=== PATIENT | female | born 1980 | race Caucasian/White ===

== ENCOUNTER 2021-01-10 03:53 | Inpatient (IN) | payer MEDICAID ==
[2021-01-10] MEDS ORDERED: Nalbuphine 10 MG/1 ML Vial IVPUSH PRN (07:34)
[2021-01-10] MEDS ORDERED: Sodium Chloride 0.9% 10 ML Syringe FLUSH PRN (07:34)
[2021-01-10] MEDS ORDERED: Ondansetron 4 MG/2 ML SDV IVPUSH PRN (07:34)
--- NOTE | 2021-01-10 07:39 | PCM.LDHP ---
L&D History of Present Illness - General Date of Service: 01/10/21 Admit Problem/Dx: Patient Status Order with Admit Dx/Problem 01/10/21 07:34 Patient Status [ADT] Routine Admission Diagnosis/Problem Admission Diagnosis/Problem Advanced maternal age Source of Information: Patient History Limitations: Reports: No Limitations - History of Present Illness Introduction:: Patient is a 40 y/o at 39 1/7 wks who presents for IOL for AMA. Doing well. 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: , 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 : 11 Para: 9 LMP (Approximate): - Past Surgical History HEENT Surgical History: Reports: Other (See Below) (tooth extraction) Social & Family History - Tobacco Use Tobacco Use Status *Q: Never Tobacco User - Alcohol Use Alcohol Use History: No - Recreational Drug Use Recreational Drug Use: No H&P Review of Systems - Review of Systems: Review Of Systems: See Below General: Reports: No Symptoms Pulmonary: Reports: No Symptoms Cardiovascular: Reports: No Symptoms Gastrointestinal: Reports: No Symptoms Genitourinary: Reports: No Symptoms Musculoskeletal: Reports: No Symptoms Psychiatric: Reports: No Symptoms Neurological: Reports: No Symptoms L&D Exam - Exam Exam: See Below - OB Specific Contraction Intensity: Irritability Movement: Active Heart Tones: Present Heart Tones per Min: 140 Heart Rate (FHR) Variability: Moderate (6-25 bmp) Presentation: Vertex - Owusu Score Owusu Score Cervix Position: Midposition Ow[place]u Score Consistency: Medium Ow[place]u Score Effacement: 31-50% Owusu Score Dilation: 1-2 cm Owusu Score 's Station: -2 Owusu Score Total: 5 - Exam General: Alert, Oriented, Cooperative Lungs: Clear to Auscultation, Normal Respiratory Effort Cardiovascular: Regular Rate, Regular Rhythm GI/Abdominal Exam: Soft, Non-Tender Genitourinary: Normal external exam Extremities: Normal Inspection Skin: Warm, Dry, Intact - Patient Data Result Diagrams: 01/10/21 08:01 - Problem List (1) 39 weeks gestation of SNOMED Code(s): 84114230 ICD Code: Z3A.39 - 39 WEEKS GESTATION OF Status: Acute Current Visit: Yes (2) Advanced maternal age (AMA), 40 years or greater SNOMED Code(s): 217565176 ICD Code: [id number] - Status: Acute Current Visit: Yes Problem List Initiated/Reviewed/Updated: Yes Orders Last 24hrs: Active Orders 24 hr Category Date Time Status Patient Status [ADT] Routine ADT 01/10/21 07:34 Ordered Communication Order [RC] ASDIRECTED Care 01/10/21 07:34 Ordered Communication Order [RC] ASDIRECTED Care 01/10/21 07:34 Ordered Communication Order [RC] ASDIRECTED Care 01/10/21 07:34 Ordered Heart Tones [RC] ASDIRECTED Care 01/10/21 07:35 Ordered Monitoring [RC] INTERMITTENT Care 01/10/21 07:34 Ordered Non Stress Test [RC] PER UNIT ROUTINE Care 01/10/21 07:34 Ordered Notify Provider [RC] ASDIRECTED Care 01/10/21 07:34 Ordered Notify Provider [RC] PRN Care 01/10/21 07:34 Ordered Peripheral IV Care [RC] . DIRECTED Care 01/10/21 07:35 Ordered Up ad [place] [RC] ASDIRECTED Care 01/10/21 07:35 Ordered Vaginal Exam [RC] ASDIRECTED Care 01/10/21 07:34 Ordered Vital Signs [RC] ASDIRECTED Care 01/10/21 07:34 Ordered Regular Diet [DIET] Diet 01/10/21 Breakfast Ordered CBC W/O DIFF,HEMOGRAM [HEME] Routine Lab 01/10/21 07:34 Ordered CORONAVIRUS COVID-19 [place] [MOLEC] Stat Lab 01/10/21 07:37 Ordered HEP C VIRUS AB [REF] Routine Lab 01/10/21 07:34 Ordered RAPID PLASMA REAGIN,RPR [CHEM] Routine Lab 01/10/21 07:34 Ordered TYPE AND SCREEN [BBK] Routine Lab 01/10/21 07:34 Ordered Lactated Ringers [Ringers, Lactated] 1,000 ml Med 01/10/21 07:45 Ordered IV ASDIRECTED Nalbuphine [Nubain] Med 01/10/21 07:34 Ordered 10 mg IVPUSH Q2H PRN Ondansetron [Zofran] Med 01/10/21 07:34 Ordered 4 mg IVPUSH Q4H PRN Oxytocin/Lactated Ringers [Pitocin in LR 10 Units/1,000 Med 01/10/21 07:45 Ordered ML] 10 unit in 1,000 ml IV .CONTINUOUS Oxytocin/Lactated Ringers [Pitocin in LR 10 Units/1,000 Med 01/10/21 07:45 Ordered ML] 10 unit in 1,000 ml IV TITRATE Sodium Chloride 0.9% [Saline Flush] Med 01/10/21 07:34 Ordered 10 ml FLUSH ASDIRECTED PRN Electronic Heart Tones Ext w TOCO [WOMSER] Oth 01/10/21 07:34 Ordered Routine Electronic Heart Tones Internal [WOMSER] Per Unit Oth 01/10/21 07:34 Ordered Routine Peripheral IV Insertion Adult [OM.PC] Routine Oth 01/10/21 07:34 Ordered Resuscitation Status Routine Resus Stat 01/10/21 07:34 Ordered Medication Orders Oxytocin/Lactated Ringer's (Pitocin In Lr 10 Units/1,000 Ml) 10 unit in 1,000 mls @ 12 mls/hr IV TITRATE JOSE J; Protocol Oxytocin/Lactated Ringer's (Pitocin In Lr 10 Units/1,000 Ml) 10 unit in 1,000 mls @ 500 mls/hr IV .CONTINUOUS JOSE J Nalbuphine HCl (Nalbuphine 10 Mg/1 Ml Vial) 10 mg IVPUSH Q2H PRN PRN Reason: Pain Ondansetron HCl (Ondansetron 4 Mg/2 Ml Sdv) 4 mg IVPUSH Q4H PRN PRN Reason: Nausea/Vomiting Sodium Chloride (Sodium Chloride 0.9% 10 Ml Syringe) 10 ml FLUSH ASDIRECTED PRN PRN Reason: Keep Vein Open Assessment/Plan Comment:: * Labs to be done * GBS negative * Pitocin/AROM for IOL * Pain management per patient preference * Anticipate
[2021-01-10] MEDS ORDERED: Oxytocin/Lactated Ringers 10 UNIT/1,000 ML BAG IV SCH ×2 (07:45)
[2021-01-10] MEDS: Lactated Ringers 1,000 ML IV SCH ×4 (08:47→19:31)
[2021-01-10] MEDS ORDERED: ePHEDrine 50 MG/ML SDV IVPUSH PRN (09:07)
[2021-01-10] MEDS ORDERED: fentaNYL 100 MCG/2 ML SDV EPIDUR PRN (09:07)
[2021-01-10] MEDS ORDERED: diphenhydrAMINE 50 MG/ML SDV IVPUSH PRN (09:07)
--- NOTE | 2021-01-10 12:21 | PCM.PNLD ---
Labor Progress Note - VS & Meds Vital Signs: Last Vital Signs Temp 37.2 C 01/10/21 07:56 Pulse 102 H 01/10/21 07:56 Resp 16 01/10/21 07:56 BP 126/80 01/10/21 08:04 Pulse Ox 99 01/10/21 07:56 Active Medications: Current Medications Diphenhydramine HCl (Diphenhydramine 50 Mg/Ml Sdv) 25 mg IVPUSH Q6H PRN PRN Reason: pruritis Ephedrine Sulfate (Ephedrine 50 Mg/Ml Sdv) 5 mg IVPUSH ASDIRECTED PRN PRN Reason: Hypotension Fentanyl (Fentanyl 100 Mcg/2 Ml Sdv) 100 mcg EPIDUR Q3H PRN PRN Reason: Pain Fentanyl/Bupivacaine HCl (Bupivacaine/Fentanyl/Ns 100 Ml Bag) 100 ml EPIDUR ASDIRECTED PRN PRN Reason: Pain Oxytocin/Lactated Ringer's (Pitocin In Lr 10 Units/1,000 Ml) 10 unit in 1,000 mls @ 12 mls/hr IV TITRATE JOSE J; Protocol Last Titration: 01/10/21 11:50 Dose: 10 munits/min, 60 mls/hr Documented by: Oxytocin/Lactated Ringer's (Pitocin In Lr 10 Units/1,000 Ml) 10 unit in 1,000 mls @ 500 mls/hr IV .CONTINUOUS JOSE J Lactated Ringer's (Ringers, Lactated) 1,000 mls @ 40 mls/hr IV ASDIRECTED JOSE J Last Admin: 01/10/21 08:47 Dose: 40 mls/hr Documented by: Nalbuphine HCl (Nalbuphine 10 Mg/1 Ml Vial) 10 mg IVPUSH Q2H PRN PRN Reason: Pain Ondansetron HCl (Ondansetron 4 Mg/2 Ml Sdv) 4 mg IVPUSH Q4H PRN PRN Reason: Nausea/Vomiting Sodium Chloride (Sodium Chloride 0.9% 10 Ml Syringe) 10 ml FLUSH ASDIRECTED PRN PRN Reason: Keep Vein Open - Uterine Contractions Uterine Monitoring Mode: External [place] Contraction Intensity: Mild - Monitoring Monitor Mode: External Ultrasound Heart Rate (FHR) Baseline: 145 Heart Rate (FHR) Variability: Moderate (6-25 bmp) Accelerations: Present, 15x15 Decelerations: None Strip Review: Category I - Vaginal Exam Dilation (cm): 1.5 Effacement (Percent): 50 Station: -3 Cervical Position: Midposition - Labor Progress (Free Text) Labor Progress: Doing well. Pitocin at 10. Feeling slight contractions. AROM performed with release of clear fluid. Continue present management
[2021-01-10] MEDS: Bupivacaine/fentaNYL/NS 100 ML Bag EPIDUR PRN (17:26)
--- NOTE | 2021-01-10 18:27 | PCM.PREANE ---
Preanesthetic Assessment - Anesthesia/Transfusion/Family Hx Anesthesia History: Prior Anesthesia Without Reaction Family History of Anesthesia Reaction: No Transfusion History: No Prior Transfusion(s) Intubation History: Unknown - Review of Systems General: No Symptoms Pulmonary: No Symptoms Cardiovascular: No Symptoms Gastrointestinal: No Symptoms Neurological: No Symptoms - Physical Assessment Vital Signs: Last Vital Signs Temp 98.9 F 01/10/21 07:56 Pulse 102 H 01/10/21 07:56 Resp 16 01/10/21 07:56 BP 126/80 01/10/21 08:04 Pulse Ox 99 01/10/21 07:56 Height: 1.52 m Weight: 81.057 kg ASA Class: 2 Mental Status: Alert & Oriented x3 Dentition: Reports: Normal Dentition Thyro-Mental Finger Breadths: 3 Mouth Opening Finger Breadths: 3 ROM/Head Extension: Full Lungs: Clear to Auscultation, Normal Respiratory Effort Cardiovascular: Regular Rate, Regular Rhythm - Lab Values: Laboratory Last Values WBC 6.19 K/mm3 (3.98-10.04) 01/10/21 08:01 RBC 4.18 M/mm3 (3.98-5.22) 01/10/21 08:01 Hgb 13.0 gm/dl (11.2-15.7) 01/10/21 08:01 Hct 39.1 % (34.1-44.9) 01/10/21 08:01 MCV 93.5 fl (79.4-94.8) 01/10/21 08:01 MCH 31.1 pg (25.6-32.2) 01/10/21 08:01 MCHC 33.2 g/dl (32.2-35.5) 01/10/21 08:01 RDW Std Deviation 44.7 fL (36.4-46.3) 01/10/21 08:01 Plt Count 178 K/mm3 (182-369) L 01/10/21 08:01 MPV 10.8 fl (9.4-12.3) 01/10/21 08:01 SARS-CoV-2 RNA (CHUYITA) Negative (NEGATIVE) 01/10/21 08:00 Blood Type A POSITIVE 01/10/21 08:01 Gel Antibody Screen Negative 01/10/21 08:01 - Allergies Allergies/Adverse Reactions: Allergies Allergy/AdvReac Type Severity Reaction Status Date / Time peanut Allergy Swelling Verified 01/10/21 08:41 - Blood Blood Available: No Product(s) Available: None - Anesthesia Plan Pre-Op Medication Ordered: None - Acknowledgements Anesthesia Type Planned: Epidural Pt an Appropriate Candidate for the Planned Anesthesia: Yes Alternatives and Risks of Anesthesia Discussed w Pt/Guardian: Yes Pt/Guardian Understands and Agrees with Anesthesia Plan: Yes PreAnesthesia Questionnaire Cardiovascular History: Reports: Other (See Below) Other Cardiovascular History: Pt experiencing tachycardia and palpitations during with unknown cause Respiratory History: Reports: Asthma 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: , 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 - Infectious Disease History Infectious Disease History: Reports: Other (See Below) Other Infectious Disease History: Covid 05/08/21 - Past Surgical History HEENT Surgical History: Reports: Other (See Below) (tooth extraction) - SUBSTANCE USE Tobacco Use Status *Q: Never Tobacco User Second Hand Smoke Exposure: No Days Per Week of Alcohol Use: 0 Recreational Drug Use History: No - HOME MEDS Home Medications: Home Meds Albuterol Sulfate [Proair Digihaler] 90 mcg IH ASDIRECTED PRN 01/10/21 [History] Ferrous Sulfate 325 mg PO DAILY 01/10/21 [History] Metoprolol Tartrate [Lopressor] 12.5 mg PO ASDIRECTED PRN 01/10/21 [History] Vit 10/Iron Fum/Folic [Vitafol-OB Caplet] 1 each PO DAILY 01/10/21 [History] - CURRENT (IN HOUSE) MEDS Current Meds: Current Medications Diphenhydramine HCl (Diphenhydramine 50 Mg/Ml Sdv) 25 mg IVPUSH Q6H PRN PRN Reason: pruritis Ephedrine Sulfate (Ephedrine 50 Mg/Ml Sdv) 5 mg IVPUSH ASDIRECTED PRN PRN Reason: Hypotension Fentanyl (Fentanyl 100 Mcg/2 Ml Sdv) 100 mcg EPIDUR Q3H PRN PRN Reason: Pain Last Admin: 01/10/21 17:25 Dose: 100 mcg Documented by: Fentanyl/Bupivacaine HCl (Bupivacaine/Fentanyl/Ns 100 Ml Bag) 100 ml EPIDUR ASDIRECTED PRN PRN Reason: Pain Last Admin: 01/10/21 17:26 Dose: 100 ml Documented by: Oxytocin/Lactated Ringer's (Pitocin In Lr 10 Units/1,000 Ml) 10 unit in 1,000 mls @ 12 mls/hr IV TITRATE JOSE J; Protocol Last Titration: 01/10/21 15:50 Dose: 12 munits/min, 72 mls/hr Documented by: Oxytocin/Lactated Ringer's (Pitocin In Lr 10 Units/1,000 Ml) 10 unit in 1,000 mls @ 500 mls/hr IV .CONTINUOUS JOSE J Lactated Ringer's (Ringers, Lactated) 1,000 mls @ 40 mls/hr IV ASDIRECTED JOSE J Last Admin: 01/10/21 17:44 Dose: 40 mls/hr Documented by: Nalbuphine HCl (Nalbuphine 10 Mg/1 Ml Vial) 10 mg IVPUSH Q2H PRN PRN Reason: Pain Ondansetron HCl (Ondansetron 4 Mg/2 Ml Sdv) 4 mg IVPUSH Q4H PRN PRN Reason: Nausea/Vomiting Sodium Chloride (Sodium Chloride 0.9% 10 Ml Syringe) 10 ml FLUSH ASDIRECTED PRN PRN Reason: Keep Vein Open
[2021-01-11] MEDS ORDERED: Sodium Chloride 0.9% 1,000 ML ONE (00:26)
--- NOTE | 2021-01-11 00:58 | PCM.SN.2 ---
- Free Text/Narrative Note: 1250 Patient pitocin at 4. Having some variables and early decelerations. IUPC placed in case amnioinfusion required, but did move patient to hands/knees which did lead to resolution. Will leave in position for about 30 minutes or so and then rotate back. SVE at time of IUPC placement is Sarina Barakat MD
--- NOTE | 2021-01-11 01:52 | PCM.SN.2 ---
- Free Text/Narrative Note: 0150 Patient with resolution of variable decelerations in hands/knees, but fatigued and then rotated back. Had return of variable decelerations, but now more like like 7 cm dilated. Will start amnioinfusion/allow patient to rest. May need to turn back hands/knees once patient recovered. Sarina Barakat MD
[2021-01-11] MEDS ORDERED: Sodium Chloride 0.9% 1,000 ML IRR ONE (01:54)
[2021-01-11] MEDS: Bupivacaine/fentaNYL/NS 100 ML Bag EPIDUR PRN (01:58)
--- NOTE | 2021-01-11 04:05 | PCM.DEL ---
L & D Note - General Info Date of Service: 01/11/21 - Delivery Note Labor: Induced by ARM, Induced by Oxytocin Delivery Outcome: Livebirth Infant Delivery Method: Spontaneous Vaginal Delivery-Single Infant Delivery Mode: Spontaneous Presentation: Left Occiput Anterior (TESHA) Nuchal Cord: None Anesthesia Type: Epidural Amniotic Fluid Description: Clear Episiotomy Type: None Laceration: 1st Degree Suture type: Vicryl Suture size: 2-0 Placenta: Intact, Spontaneous Cord: 3 Vessels Estimated Blood Loss: 200 Resuscitation Needed: Yes : Bulb Syringe, Stimulated, Warmed, [place] Used, Warmer Used Delivery Comments (Free Text/Narrative):: Patient found to be complete and began pushing. With maternal pushing effort head delivered from TESHA presentation. No nuchal cord present. With gentle downward traction the shoulders and body delivered. placed on maternal abdomen. Cord clamped and cut. Cord blood obtained. Placenta allowed time to separate and expelled intact. Inspection of the perineum following delivery with small 1st degree repaired with an interrupted suture of 2-0 Vicryl - General Info Date of Service: 01/11/21 - Patient Data Vitals - Most Recent: Last Vital Signs Temp 37.2 C 01/10/21 07:56 Pulse 102 H 01/10/21 07:56 Resp 16 01/10/21 07:56 BP 126/80 01/10/21 08:04 Pulse Ox 99 01/10/21 07:56 Weight - Most Recent: 81.057 kg I&O - Last 24 Hours: Intake & Output 01/10/21 01/10/21 01/11/21 14:59 22:59 06:59 Output Total Balance @ - Exam Urinary Catheter Total Time: 0Days 0Hours - Problem List & Annotations (1) 39 weeks gestation of SNOMED Code(s): 11352288 Code(s): Z3A.39 - 39 WEEKS GESTATION OF Status: Acute Current Visit: Yes (2) Advanced maternal age (AMA), 40 years or greater SNOMED Code(s): 514356863 Code(s): QZG0949 - Status: Acute Current Visit: Yes (3) Vaginal delivery SNOMED Code(s): 467569167 Code(s): O80 - ENCOUNTER FOR FULL-TERM UNCOMPLICATED DELIVERY Status: Acute Current Visit: Yes - Problem List Review Problem List Initiated/Reviewed/Updated: Yes - My Orders Last 24 Hours: My Active Orders 01/10/21 Breakfast Regular Diet [DIET] 01/10/21 07:34 Patient Status [ADT] Routine Communication Order [RC] ASDIRECTED Communication Order [RC] ASDIRECTED Communication Order [RC] ASDIRECTED Monitoring [RC] INTERMITTENT Non Stress Test [RC] PER UNIT ROUTINE Notify Provider [RC] ASDIRECTED Notify Provider [RC] PRN Vaginal Exam [RC] ASDIRECTED Vital Signs [RC] ASDIRECTED Nalbuphine [Nubain] 10 mg IVPUSH Q2H PRN Ondansetron [Zofran] 4 mg IVPUSH Q4H PRN Sodium Chloride 0.9% [Saline Flush] 10 ml FLUSH ASDIRECTED PRN Electronic Heart Tones Ext w TOCO [WOMSER] Routine Electronic Heart Tones Internal [WOMSER] Per Unit Routine Peripheral IV Insertion Adult [OM.PC] Routine Resuscitation Status Routine 01/10/21 07:35 Heart Tones [RC] ASDIRECTED Peripheral IV Care [RC] . DIRECTED Up ad [place] [RC] ASDIRECTED 01/10/21 07:45 Lactated Ringers [Ringers, Lactated] 1,000 ml IV ASDIRECTED Oxytocin/Lactated Ringers [Pitocin in LR 10 Units/1,000 ML] 10 unit in 1,000 ml IV .CONTINUOUS Oxytocin/Lactated Ringers [Pitocin in LR 10 Units/1,000 ML] 10 unit in 1,000 ml IV TITRATE 01/10/21 08:01 HEP C VIRUS AB [REF] Routine 01/11/21 01:53 Communication Order [RC] ROUTINE 01/11/21 01:54 Sodium Chloride 0.9% 1,000 ml IRR ONETIME - Assessment Assessment:: PPD#0 - Plan Plan:: * Routine cares * Breast feeding * Discharge home in 1-2 days
[2021-01-11] MEDS ORDERED: Witch Hazel Medicated Pads 40/Jar TOP PRN (04:32)
[2021-01-11] MEDS ORDERED: Acetaminophen 325 MG Tab PO PRN (04:32)
[2021-01-11] MEDS ORDERED: Benzocaine/Menthol 20%-0.5% Spray 56 GM Canister TOP PRN (04:32)
[2021-01-11] MEDS: Lactated Ringers 1,000 ML IV SCH (04:42)
[2021-01-11] MEDS ORDERED: Bupivacaine 0.25% 10 ML SDV ONE (05:00)
[2021-01-11] MEDS: Docusate Sodium 100 MG Cap PO PRN (06:55)
[2021-01-11] MEDS: Ibuprofen 600 MG Tab PO PRN ×2 (09:55→20:41)
--- NOTE | 2021-01-11 12:41 | PCM48HPAN ---
Post Anesthesia Note - EVALUATION WITHIN 48HRS OF ANESTHETIC Vital Signs in Normal Range: Yes Patient Participated in Evaluation: Yes Respiratory Function Stable: Yes Airway Patent: Yes Cardiovascular Function Stable: Yes Hydration Status Stable: Yes Pain Control Satisfactory: Yes Nausea and Vomiting Control Satisfactory: Yes Mental Status Recovered: Yes Vital Signs: Last Vital Signs Temp 36.7 C 01/11/21 08:36 Pulse 87 01/11/21 08:36 Resp 14 01/11/21 08:36 BP 117/72 01/11/21 08:36 Pulse Ox 95 01/11/21 08:36 - COMMENTS/OBSERVATIONS Free Text/Narrative:: Patient states she still has left leg numbness, but states that the left leg is becoming more and more less numb. Patient instructed to continue to monitor and in the event leg is still numb after a few days please inform anesthesia.
--- NOTE | 2021-01-12 01:00 | PCM.DCSUM1 ---
Discharge Summary - Discharge Data Discharge Date: 01/12/21 Discharge Disposition: Home, Self-Care 01 Condition: Good - Referral to Home Health Primary Care Physician: Jing Mireles MD - Discharge Diagnosis/Problem(s) (1) 39 weeks gestation of SNOMED Code(s): 90072541 ICD Code: Z3A.39 - 39 WEEKS GESTATION OF Status: Acute Current Visit: Yes (2) Advanced maternal age (AMA), 40 years or greater SNOMED Code(s): 719882860 ICD Code: URN9622 - Status: Acute Current Visit: Yes (3) Vaginal delivery SNOMED Code(s): 662809484 ICD Code: O80 - ENCOUNTER FOR FULL-TERM UNCOMPLICATED DELIVERY Status: Acute Current Visit: Yes - Patient Summary/Data Complications: None Consults: None Recommended Follow-up Testing/Procedures: Follow up in 3 weeks for check - can be telehealth Hospital Course: 40 y/o at 39 1/7 wks who presented for IOL for AMA. Done with pitocin and AROM. Did have significant variable decelerations treated with amnioinfusion. Did achieve complete dilation and underwent an uncomplicated . See delivery note. did well and was discharged home on PPD#1 - Patient Instructions Diet: Regular Diet as Tolerated Activity: As Tolerated Activity, Other: Pelvic rest for 6 weeks Driving: May Drive Today Showering/Bathing: May Shower Showering/Bathing, Other: May Bathe Notify Provider of: Fever, Increased Pain, Swelling and Redness, Drainage, Nausea and/or Vomiting - Discharge Plan *PRESCRIPTION DRUG MONITORING PROGRAM REVIEWED*: No *COPY OF PRESCRIPTION DRUG MONITORING REPORT IN PATIENT THA: No Home Medications: Home Meds Albuterol Sulfate [Proair Digihaler] 90 mcg IH ASDIRECTED PRN 01/10/21 [History] Vit 10/Iron Fum/Folic [Vitafol-OB Caplet] 1 each PO DAILY 01/10/21 [History] Docusate Sodium [Colace] 100 mg PO BID PRN cap 01/12/21 [Rx] Ibuprofen [Motrin] 600 mg PO Q6H PRN tablet 01/12/21 [Rx] Referrals: Sarina Barakat MD [Family Provider] - - Discharge Summary/Plan Comment DC Time >30 min.: No - Patient Data Vitals - Most Recent: Last Vital Signs Temp 36.7 C 01/11/21 21:15 Pulse 87 01/11/21 21:15 Resp 15 01/11/21 21:15 BP 121/70 01/11/21 21:15 Pulse Ox 95 01/11/21 21:15 Weight - Most Recent: 81.057 kg I&O - Last 24 hours: Intake & Output 01/11/21 01/11/21 01/12/21 14:59 22:59 06:59 Intake Total 60 Balance 60 Med Orders - Current: Current Medications Acetaminophen (Acetaminophen 325 Mg Tab) 650 mg PO Q4H PRN PRN Reason: mild pain or fever Benzocaine/Menthol (Benzocaine/Menthol 20%-0.5% [place] 56 Gm Canister) 0 gm TOP ASDIRECTED PRN PRN Reason: Perineal Comfort Measure Last Admin: 01/11/21 06:57 Dose: 1 canister Documented by: Docusate Sodium (Docusate Sodium 100 Mg Cap) 100 mg PO BID PRN PRN Reason: Constipation Last Admin: 01/11/21 06:55 Dose: 100 mg Documented by: Ibuprofen (Ibuprofen 600 Mg Tab) 600 mg PO Q6H PRN PRN Reason: Mild pain or fever Last Admin: 01/11/21 20:41 Dose: 600 mg Documented by: Leny Mauricio (Leny Mauricio Medicated Pads 40/Jar) 1 pad TOP ASDIRECTED PRN PRN Reason: Perineal Comfort Measure Last Admin: 01/11/21 06:56 Dose: 1 tub Documented by: Discontinued Medications Bupivacaine HCl (Bupivacaine 0.25% 10 Ml Sdv) 10 ml .ROUTE .STK-MED ONE Stop: 01/11/21 05:01 Diphenhydramine HCl (Diphenhydramine 50 Mg/Ml Sdv) 25 mg IVPUSH Q6H PRN PRN Reason: pruritis Ephedrine Sulfate (Ephedrine 50 Mg/Ml Sdv) 5 mg IVPUSH ASDIRECTED PRN PRN Reason: Hypotension Fentanyl (Fentanyl 100 Mcg/2 Ml Sdv) 100 mcg EPIDUR Q3H PRN PRN Reason: Pain Last Admin: 01/10/21 17:25 Dose: 100 mcg Documented by: Fentanyl/Bupivacaine HCl (Bupivacaine/Fentanyl/Ns 100 Ml Bag) 100 ml EPIDUR ASDIRECTED PRN PRN Reason: Pain Last Admin: 01/11/21 01:58 Dose: 100 ml Documented by: Oxytocin/Lactated Ringer's (Pitocin In Lr 10 Units/1,000 Ml) 10 unit in 1,000 mls @ 12 mls/hr IV TITRATE JOSE J; Protocol Last Titration: 01/10/21 23:05 Dose: 4 munits/min, 24 mls/hr Documented by: Oxytocin/Lactated Ringer's (Pitocin In Lr 10 Units/1,000 Ml) 10 unit in 1,000 mls @ 500 mls/hr IV .CONTINUOUS JOSE J Last Admin: 01/11/21 06:52 Dose: 500 mls/hr Documented by: Lactated Ringer's (Ringers, Lactated) 1,000 mls @ 40 mls/hr IV ASDIRECTED JOSE J Last Admin: 01/11/21 04:42 Dose: 40 mls/hr Documented by: Sodium Chloride (Normal Saline) Confirm Administered Dose 1,000 mls @ as directed .ROUTE .STK-MED ONE Stop: 01/11/21 00:27 Last Admin: 01/11/21 01:59 Dose: 200 mls/hr Documented by: Sodium Chloride (Sodium Chloride 0.9%) 1,000 mls @ 200 mls/hr IRR ONETIME ONE Stop: 01/11/21 06:53 Last Admin: 01/11/21 02:08 Dose: Not Given Documented by: Nalbuphine HCl (Nalbuphine 10 Mg/1 Ml Vial) 10 mg IVPUSH Q2H PRN PRN Reason: Pain Ondansetron HCl (Ondansetron 4 Mg/2 Ml Sdv) 4 mg IVPUSH Q4H PRN PRN Reason: Nausea/Vomiting Sodium Chloride (Sodium Chloride 0.9% 10 Ml Syringe) 10 ml FLUSH ASDIRECTED PRN PRN Reason: Keep Vein Open
--- NOTE | 2021-01-12 01:00 | PCM.PNPP ---
- General Info Date of Service: 01/12/21 Functional Status: Reports: Pain Controlled, Tolerating Diet, Ambulating, Urinating - Review of Systems General: Reports: No Symptoms Pulmonary: Reports: No Symptoms Cardiovascular: Reports: No Symptoms Gastrointestinal: Reports: No Symptoms Genitourinary: Reports: No Symptoms Musculoskeletal: Reports: No Symptoms - Patient Data Vital Signs - Most Recent: Last Vital Signs Temp 36.7 C 01/11/21 21:15 Pulse 87 01/11/21 21:15 Resp 15 01/11/21 21:15 BP 121/70 01/11/21 21:15 Pulse Ox 95 01/11/21 21:15 Weight - Most Recent: 81.057 kg I&O - Last 24 Hours: Intake & Output 01/11/21 01/11/21 01/12/21 14:59 22:59 06:59 Intake Total 60 Balance 60 Med Orders - Current: Current Medications Acetaminophen (Acetaminophen 325 Mg Tab) 650 mg PO Q4H PRN PRN Reason: mild pain or fever Benzocaine/Menthol (Benzocaine/Menthol 20%-0.5% [place] 56 Gm Canister) 0 gm TOP ASDIRECTED PRN PRN Reason: Perineal Comfort Measure Last Admin: 01/11/21 06:57 Dose: 1 canister Documented by: Docusate Sodium (Docusate Sodium 100 Mg Cap) 100 mg PO BID PRN PRN Reason: Constipation Last Admin: 01/11/21 06:55 Dose: 100 mg Documented by: Ibuprofen (Ibuprofen 600 Mg Tab) 600 mg PO Q6H PRN PRN Reason: Mild pain or fever Last Admin: 01/11/21 20:41 Dose: 600 mg Documented by: Leny Mauricio (Leny Mauricio Medicated Pads 40/Jar) 1 pad TOP ASDIRECTED PRN PRN Reason: Perineal Comfort Measure Last Admin: 01/11/21 06:56 Dose: 1 tub Documented by: Discontinued Medications Bupivacaine HCl (Bupivacaine 0.25% 10 Ml Sdv) 10 ml .ROUTE .STK-MED ONE Stop: 01/11/21 05:01 Diphenhydramine HCl (Diphenhydramine 50 Mg/Ml Sdv) 25 mg IVPUSH Q6H PRN PRN Reason: pruritis Ephedrine Sulfate (Ephedrine 50 Mg/Ml Sdv) 5 mg IVPUSH ASDIRECTED PRN PRN Reason: Hypotension Fentanyl (Fentanyl 100 Mcg/2 Ml Sdv) 100 mcg EPIDUR Q3H PRN PRN Reason: Pain Last Admin: 01/10/21 17:25 Dose: 100 mcg Documented by: Fentanyl/Bupivacaine HCl (Bupivacaine/Fentanyl/Ns 100 Ml Bag) 100 ml EPIDUR ASDIRECTED PRN PRN Reason: Pain Last Admin: 01/11/21 01:58 Dose: 100 ml Documented by: Oxytocin/Lactated Ringer's (Pitocin In Lr 10 Units/1,000 Ml) 10 unit in 1,000 mls @ 12 mls/hr IV TITRATE JOSE J; Protocol Last Titration: 01/10/21 23:05 Dose: 4 munits/min, 24 mls/hr Documented by: Oxytocin/Lactated Ringer's (Pitocin In Lr 10 Units/1,000 Ml) 10 unit in 1,000 mls @ 500 mls/hr IV .CONTINUOUS JOSE J Last Admin: 01/11/21 06:52 Dose: 500 mls/hr Documented by: Lactated Ringer's (Ringers, Lactated) 1,000 mls @ 40 mls/hr IV ASDIRECTED JOSE J Last Admin: 01/11/21 04:42 Dose: 40 mls/hr Documented by: Sodium Chloride (Normal Saline) Confirm Administered Dose 1,000 mls @ as directed .ROUTE .STK-MED ONE Stop: 01/11/21 00:27 Last Admin: 01/11/21 01:59 Dose: 200 mls/hr Documented by: Sodium Chloride (Sodium Chloride 0.9%) 1,000 mls @ 200 mls/hr IRR ONETIME ONE Stop: 01/11/21 06:53 Last Admin: 01/11/21 02:08 Dose: Not Given Documented by: Nalbuphine HCl (Nalbuphine 10 Mg/1 Ml Vial) 10 mg IVPUSH Q2H PRN PRN Reason: Pain Ondansetron HCl (Ondansetron 4 Mg/2 Ml Sdv) 4 mg IVPUSH Q4H PRN PRN Reason: Nausea/Vomiting Sodium Chloride (Sodium Chloride 0.9% 10 Ml Syringe) 10 ml FLUSH ASDIRECTED PRN PRN Reason: Keep Vein Open - Infant Interaction Disposition, : in Room with Family Infant Interaction: Holding Infant Infant Feeding: Breastfed Infant; Nursed Well Support Person: - Recovery Exam Fundal Tone: Firm Fundal Level: 2 Fingerbreadths Above Umbilicus Fundal Placement: Midline Lochia Amount: Small Lochia Color: Rubra/Red Perineum Description: Intact, Minimal Bruising/Swelling Episiotomy/Laceration: None Bladder Status: Voiding Urinary Elimination: Voided - Exam General: Alert, Oriented, Cooperative GI/Abdominal Exam: Soft, Non-Tender Extremities: Normal Inspection - Problem List & Annotations (1) 39 weeks gestation of SNOMED Code(s): 88899220 Code(s): Z3A.39 - 39 WEEKS GESTATION OF Status: Acute Current Visit: Yes (2) Advanced maternal age (AMA), 40 years or greater SNOMED Code(s): 104536687 Code(s): CIS0661 - Status: Acute Current Visit: Yes (3) Vaginal delivery SNOMED Code(s): 675368460 Code(s): O80 - ENCOUNTER FOR FULL-TERM UNCOMPLICATED DELIVERY Status: Acute Current Visit: Yes - Problem List Review Problem List Initiated/Reviewed/Updated: Yes - My Orders Last 24 Hours: My Active Orders 01/11/21 04:32 Acetaminophen [TylenoL] 650 mg PO Q4H PRN Benzocaine/Menthol [Dermoplast Pain Relief [place]] See Dose Instructions TOP ASDIRECTED PRN Docusate Sodium [Colace] 100 mg PO BID PRN Ibuprofen [Motrin] 600 mg PO Q6H PRN witch [place] [Tucks] 1 pad TOP ASDIRECTED PRN Heat Therapy [OM.PC] PRN 01/11/21 04:32 Vital Signs [RC] 03,09,15,21 Assess Lochia [WOMSER] Per Unit Routine Assess Uterine Involution [WOMSER] Per Unit Routine Breast Pump [WOMSER] Per Unit Routine Ice Therapy [OM.PC] Per Unit Routine Perineal Care [OM.PC] Per Unit Routine Peripheral IV Discontinue [OM.PC] Routine Sitz Bath [OM.PC] Per Unit Routine 01/11/21 Breakfast Regular Diet [DIET] 01/12/21 00:58 Ready for Discharge [RC] PER UNIT ROUTINE 01/12/21 04:32 Heat Therapy [OM.PC] PRN - Assessment Assessment:: PPD#1 - Plan Plan:: * Routine cares * Breast feeding * Discharge home today
[2021-01-12] MEDS: Ibuprofen 600 MG Tab PO PRN (04:05)
[2021-01-12] MEDS: Docusate Sodium 100 MG Cap PO PRN (08:49)
== END 2021-01-12 11:45 | disposition home or self-care (01) | DRG 807 ==
LOC: JD.OB 03:53 → OBSVTOIN 01-11 03:53 → JD.OB 01-11 03:54
PROVIDERS: ADMIT Obstetrics & Gynecology; ATTEND Obstetrics & Gynecology
PROC: 10E0XZZ Delivery of Products of Conception, External Approach (ICD-10-PCS; principal; 2021-01-11)
PROC: 10907ZC Drainage of Amniotic Fluid, Therapeutic from Products of Conception, Via Natural or Artificial Opening (ICD-10-PCS; 2021-01-11)
PROC: 3E033VJ Introduction of Other Hormone into Peripheral Vein, Percutaneous Approach (ICD-10-PCS; 2021-01-11)
PROC: 0HQ9XZZ Repair Perineum Skin, External Approach (ICD-10-PCS; 2021-01-11)
PROC: 3E0R3BZ Introduction of Anesthetic Agent into Spinal Canal, Percutaneous Approach (ICD-10-PCS; 2021-01-11)
PROC: 10H07YZ Insertion of Other Device into Products of Conception, Via Natural or Artificial Opening (ICD-10-PCS; 2021-01-11)
DX: O76 Abnormality in fetal heart rate and rhythm complicating labor and delivery (principal); Z37.0 Single live birth; Z91.010 Allergy to peanuts; Z3A.39 39 weeks gestation of pregnancy; Z20.822 Contact with and (suspected) exposure to COVID-19
CPT/HCPCS: 01967; 36415; 51701; 51702; 59025; 59409; 85027; 86592; 86803; 86850; 86900; 86901; A9270-GY; J2590; J3010; J3490; J7030; J7120; U0002